=== PATIENT | female | born 1995 | race Caucasian/White ===

== ENCOUNTER 2016-12-09 17:25 | Emergency (ER) | payer OTHER | END 2016-12-09 18:53 | disposition home or self-care (01) | LOC: ED 17:25 | DX: L02.211 Cutaneous abscess of abdominal wall (principal); B96.89 Other specified bacterial agents as the cause of diseases classified elsewhere; J45.909 Unspecified asthma, uncomplicated; F17.210 Nicotine dependence, cigarettes, uncomplicated ==